=== PATIENT | male | born 1950 | race Caucasian/White ===

== ENCOUNTER 2019-12-09 09:54 | Day surgery (SDC) | payer MEDICARE, BC ==
--- NOTE | 2019-12-09 07:53 | HP ---
DATE OF SURGERY: 12/09/2019 HISTORY OF PRESENT ILLNESS: The patient is a 69 year old with right inguinal hernia, had prior history of open appendectomy, increasing in size large right inguinal hernia on exam. PAST MEDICAL HISTORY: Hypertension. Horseshoe kidney. PAST SURGICAL HISTORY: Open appendectomy. Right knee surgery in the past. MEDICATIONS: Methotrexate, hydrochlorothiazide, pilocarpine, potassium, Co-Q10, folic acid, B12. ALLERGIES: NKDA. FAMILY HISTORY: Negative in regards to this problem. SOCIAL HISTORY: Denies smoking or alcohol abuse. REVIEW OF SYSTEMS: Fourteen systems reviewed. He denies any chest pain or palpitations. Other systems negative or noncontributory as above and per preadmission questionnaire. PHYSICAL EXAMINATION: GENERAL: No acute distress. HEENT: Sclerae nonicteric. NECK: No JVD. CHEST: Equal excursion, nonlabored breathing. CVS: Regular rate and rhythm. ABDOMEN: Soft. No peritoneal signs. He has a large right inguinal hernia on exam. He had a slight weakness on the left side but no symptoms on that side. The patient discussed options. He does not want intervention regarding his left side currently. EXTREMITIES: No cyanosis. NEURO: Alert, oriented, moving extremities symmetrically. No gross motor deficits noted. PSYCH: Appropriate mood and affect. Sclera nonicteric. IMPRESSION: Large right inguinal hernia increasing in size and desires repair of right inguinal hernia at this point. I feel the patient will benefit from repair. Given the size he was discussed options. It was felt he would be best served by open repair given the size of the hernia. Risk explained in detail but not limited to bleeding or infection, risk of bowel injury or perforation possibly requiring open procedure, risk of swelling or firmness in the incision, risk of hematoma or seroma formation, risk of hernia recurrence, risk of mesh infection possibly requiring removal, risk of ingrown hair or suture reaction, risk of hydrocele formation, risk of black and blue bruising, risk of urinary retention, risk of deep venous thrombosis, pulmonary embolism, pneumonia, general risk of anesthesia. He also understands the general risk of aches, pains, burning, numbness lower abdomen, groin, thigh or scrotal area possibly manager intermediate or chronic in nature, general risk of anesthesia, deep venous thrombosis, pulmonary embolism, pneumonia, risk of sensory or motor nerve irritation, scar formation or injury, risk of aches, pains, burning, numbness lower abdomen, groin or scrotal area possibly manager intermediate or chronic in nature, 10 to 12% possibly interfering with sexual function from the aches and pain standpoint. He understands and agrees to the planned procedure and will proceed with open repair right inguinal hernia repair with mesh as an outpatient.
[2019-12-09] MEDS ORDERED: CEFAZOLIN 2 GM-D5W BAG** 2 GM/50 ML ML IV SCH (10:30)
[2019-12-09] MEDS ORDERED: Lactated Ringers 1,000 ML IV SCH (10:30)
[2019-12-09] MEDS ORDERED: Lactated Ringers 1,000 ML IV ONE (10:47)
[2019-12-09] MEDS ORDERED: Sensorcaine 0.25% 10 ML ONE (10:47)
[2019-12-09] MEDS ORDERED: KEFZOL 1 GM ONE (10:47)
[2019-12-09] MEDS ORDERED: DIPRIVAN 200 MG/20 ML IV ONE (12:07)
[2019-12-09] MEDS ORDERED: TORAdol 30 mg Injection ONE (12:13)
[2019-12-09] MEDS ORDERED: Zofran 4 MG/2 ML VIAL ONE (12:13)
[2019-12-09] MEDS ORDERED: Xylocaine-Mpf 2% 5 Ml Vial ONE (12:13)
[2019-12-09] MEDS ORDERED: SUBLIMAZE 100 MCG/2 ML ONE ×3 (12:13→13:39)
[2019-12-09] MEDS ORDERED: Decadron 4 MG INJ ONE (12:13)
[2019-12-09] MEDS ORDERED: DILAUDID 2 MG INJECTION ONE (13:39)
[2019-12-09 14:58] VITALS: O2SAT 96
[2019-12-09 15:07] VITALS: BP 160/94; PULSE 92
--- NOTE | 2019-12-10 09:09 | OP ---
SURGERY DATE/TIME: 12/09/2019 1213 PREOPERATIVE DIAGNOSIS: Right inguinal hernia. POSTOPERATIVE DIAGNOSIS: Moderately large right inguinal hernia. PROCEDURS: Open repair right inguinal hernia with mesh. SURGEON: Dr. Otis Agarwal. ANESTHESIA: General. ESTIMATED BLOOD LOSS: Minimal. INDICATIONS: As noted above. Risks and benefits explained in detail and not limited to and consent obtained. The site was confirmed and marked in the preoperative holding area. DESCRIPTION OF PROCEDURE AND FINDINGS: Taken to the operating room. General anesthesia induced. He was prepped and draped in usual sterile fashion. After official time out and no disagreement with planned procedure, a transverse incision made right inguinal area. Dissection carried down through Santos fascia to the aponeurosis external oblique split in the direction of its fibers towards its dilated external ring with moderately large hernia. The cord is gently mobilized up off of the pubic tubercle with a [place] drain. He had a large indirect component and moderate sized direct component. It is felt he would benefit from repair. Cremasteric fibers carefully . A thin-walled hernia sac was from the cord structures of Cremasteric fibers. Cord lipoma carefully isolated and ligated with Vicryl tie and passed off. This is quite separate from the cord structures. The hernia sac itself was carefully dissected down to the internal ring. It was opened. It had some omentum that was popping in and out and small amount of clear ascites. Omentum reduced back down in the abdomen. Hernia sac high ligated with 0 Prolene, transected and passed off. At this point the direct component was imbricated downward with running 0 PDS up to a more normal size internal ring this is accomplished. It was felt he would benefit from mesh repair to further reinforce given his weak tissue. A 2 x 4 piece of mesh cut to appropriate length. Keyhole cut and secured to the fascia with running 2-0 Prolene along Braulio's ligament along the shelving portion of the inguinal ligament laterally past the internal ring with 0 Prolene and 0 Prolene used to transfix to the rectus fascia medially and 0 Vicryl was used to transfix the aponeurosis in internal oblique superiorly avoiding the visible branches of the iliohypogastric and ilioinguinal nerves. Tails of the mesh were tacked together laterally with 0 Prolene. The new internal ring was felt to be not too tight. Mesh lying nice and flat in a tension-free manner. Tails are nice and flat on the external oblique laterally. Good hemostasis noted. External oblique closed with 0 Vicryl. Santos closed with 3-0 Vicryl. Subcu closed with 3-0 Vicryl. Skin closed with 4-0 Vicryl. 0.25% Marcaine local had been injected along the skin incision back towards the origin of the inguinal nerve back towards the anterior iliac spine. Steri-Strips, sterile dressing and pressure dressing applied. The patient tolerated the procedure well. There were no immediate complications. There was no family here to discuss the findings with. I will see him back in the office next week. He is to avoid any heavy lifting for the next probably eight weeks given his weak tissue.
== END 2019-12-09 15:15 | disposition home or self-care (01) ==
LOC: SDC 09:54
PROVIDERS: ATTEND Surgery
DX: K40.90 Unilateral inguinal hernia, without obstruction or gangrene, not specified as recurrent (principal); I10 Essential (primary) hypertension; Z79.899 Other long term (current) drug therapy
CPT/HCPCS: 82962; C1781; J0690; J1100; J1170; J1885; J2405; J2704; J3010